=== PATIENT | female | born 1970 | race Caucasian/White ===

== ENCOUNTER 2022-04-25 09:47 | Emergency (ER) | payer OTHER ==
[~2022-04-25] VITALS: Ht 165.1 cm; Wt 70.3 kg
[2022-04-25] MEDS ORDERED: PROMETRIUM200 MG (09:55)
== END 2022-04-25 15:48 | disposition home or self-care (01) ==
LOC: ER 09:47
DX: R10.2 Pelvic and perineal pain (principal); D25.9 Leiomyoma of uterus, unspecified